=== PATIENT | male | born 2000 | race Two or more races ===

== ENCOUNTER 2021-04-22 06:24 | Emergency (ER) | payer MEDICAID, SELFPAY ==
--- NOTE | ~2021-04-22 | XR_ITS ---
EXAMINATION: XR HAND, RIGHT CLINICAL INFORMATION: Pain COMPARISON: 02/15/2018 TECHNIQUE: PA, lateral, and oblique views of the right hand. Patient was unable to straighten her fingers for imaging FINDINGS: There is a comminuted intra-articular fracture of the fourth metacarpal with minimal impaction but no significant angulation. There is associated soft tissue swelling. No other acute bony abnormality identified. No radiopaque foreign body. XR/XR hand RT min 3V IMPRESSION: Comminuted intra-articular fracture of the distal aspect of the fourth metacarpal extending to the fourth MCP joint
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
[2021-04-22 06:51] VITALS: BP 106/78; PULSE 69; RESP 16; TEMP 36.9; O2SAT 99; BMI 18.6
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
== END 2021-04-22 07:49 | disposition home or self-care (01) ==
PROVIDERS: Emergency Provider Emergency Medicine
DX: S62.304A Unspecified fracture of fourth metacarpal bone, right hand, initial encounter for closed fracture (principal); M79.641 Pain in right hand; X58.XXXA Exposure to other specified factors, initial encounter; Y93.9 Activity, unspecified; Y92.9 Unspecified place or not applicable; Y99.9 Unspecified external cause status; Z79.899 Other long term (current) drug therapy
CPT/HCPCS: 29125; 73130; 99283; 99284

== ENCOUNTER → 2021-04-25 12:40 | Outpatient (BNVA) | payer MEDICAID, SELFPAY | PROVIDERS: Visit Provider Physician Assistant | DX: S62.304A Unspecified fracture of fourth metacarpal bone, right hand, initial encounter for closed fracture (principal) | CPT/HCPCS: 99202 ==

== ENCOUNTER 2021-04-28 09:31 | Day surgery (SDC) | payer MEDICAID, SELFPAY ==
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
[2021-04-28] VITALS (7 sets, daily range): BP systolic 105–134; BP diastolic 56–94; PULSE 60–89; RESP 16; TEMP 36.1–36.6; O2SAT 97–100; BMI 17.9
--- NOTE | ~2021-04-28 | FL_ITS ---
EXAMINATION: XR FLUOROSCOPY WITH IMAGES CLINICAL INFORMATION: Fracture fourth metacarpal. COMPARISON: None. TECHNIQUE: Fluoroscopy performed by Dr. Angeles Evans. Fluoroscopy time: 82.65 seconds DAP: 45 358 mGycm2 Images: 9 FINDINGS: There is a distal fourth metacarpal fracture stabilized in the OR metallic pin in satisfactory fracture alignment. The MCP joint space is maintained and normal. FL/FL guidance in OR IMPRESSION: Satisfactory alignment of distal fourth metacarpal status post ORIF.
--- NOTE | 2021-04-28 09:59 | W.PM.OPN ---
Operative Note Operative Note Date of Service: 04/28/21 Narrative: Operative Note Narrative: Preop diagnosis: 1. Left 4th Metacarpal head and neck fracture Postop diagnosis: Same Procedure: 1. Left 4th Metacarpal fracture closed reduction percutaneous pinning 2. Ulnar nerve block Surgeon: Cristina Reynoso MD Anesthesia: General Findings: Metacarpal fracture Implants: 0.062 K-wires times 1, 0.045 K-wire x1 Tourniquet time: None EBL: Minimal Specimen: None Drains: None Complications: None Disposition: Brought to the recovery room in stable condition Plan: Follow-up in 10-14 days for a wound check, postop radiographs and for placement in a short-arm cast or splint Anticipate K-wire removal in 4 weeks based on interval bony healing Educate the patient that full fracture healing anticipated in approximately 8-12 weeks. Indications: The patient is 21 years old with left 4th metacarpal head and neck fractures . The risks and benefits of operative treatment, including but not limited to risk of damage to blood vessels, nerves, tendons, infection, recurrence, delayed or nonunion of fracture, persistent pain or numbness, incomplete resolution of preoperative symptoms, or need for further surgery were discussed with the patient and they wished to proceed with surgery. Procedure: Once consent was obtained patient was brought back to the operating suite and placed in the operating table in a supine position. . Perioperative antibiotics and general anesthesia was administered by the anesthesia team. A tourniquet was applied to the proximal aspect of the left upper extremity and the limb was prepped and draped in a standard surgical fashion. Tourniquet was not inflated during the case. The FluoroScan was used during the case to assist with our fracture reduction and placement of all implants. A closed reduction was performed on the patient's left 4th metacarpal head fracture. The fracture was already getting sticky, but I was able to improve the position of the articular surface. I then placed a single 0.062 K-wire retrograde through the head of the 4th metacarpal extending proximally across the fracture site to the shaft of the metacarpal. A 0.045 K-wire was placed transversely through the neck of the 5th metacarpal extending into the head of the 4th metacarpal, crossing 1 of the longitudinal fracture planes. Fracture alignment was assessed for both angular and rotational malalignment. Once satisfied with our fracture reduction and implant placement, the K-wires were bent and cut short and pin caps applied. Final fluoroscopic images were then obtained. The wounds were copiously irrigated with normal saline. An ulnar nerve block was then performed by infiltrating about the ulnar nerve at the wrist with some 1% lidocaine with epinephrine for postop pain control. A Sterile dressing and short volar splint was applied. The patient appears to have tolerated the procedure well and with no complications. All digits were well vascularized at the conclusion of the case.
[2021-04-28] MEDS: Lactated Ringers 1,000 ML 100 ML IVCONT (10:04)
--- NOTE | 2021-04-28 11:32 | MHC.SHP ---
Pre-Procedural Eval Section A Date of Service: 04/28/21 The patient is an INPATIENT: No Changes since office visit: No Cold of Flu in the past 2 weeks, No New Medical Problems, No Changes in Medication and No Patient answered all questions The History & Physical has been completed within 30 days and I have reviewed it.: Yes Section B Chief Complaint: fx metacarcal bone Allergies: Allergies Allergy/AdvReac Type Severity Reaction Status Date / Time No Known Allergies Allergy Verified 04/25/21 12:48 Plan I have reviewed the history and physical and performed a pertinent physical examination on my patient. No changes have occurred unless specified.
== END 2021-04-28 14:02 ==
LOC: HO.SSS 09:32
PROVIDERS: Visit Provider Orthopaedic Surgery
PROC: (CPT 26615; principal; 2021-04-28 10:50)
DX: S62.334A Displaced fracture of neck of fourth metacarpal bone, right hand, initial encounter for closed fracture (principal); Y04.2XXA Assault by strike against or bumped into by another person, initial encounter; Y93.9 Activity, unspecified; Y92.524 Gas station as the place of occurrence of the external cause; Y99.9 Unspecified external cause status
CPT/HCPCS: 26615; J0690; J1170; J2405

== ENCOUNTER 2021-05-10 12:32 | Outpatient (REF) | payer OTHER, SELFPAY ==
--- NOTE | ~2021-05-10 | XR_ITS ---
EXAMINATION: XR HAND, RIGHT CLINICAL INFORMATION: Pain right hand. COMPARISON: Fluoroscopy guidance 04/28/2021. TECHNIQUE: Three views of the right hand. FINDINGS: The distal fourth metacarpal comminuted fracture has been stabilized with 2 pins traversing 90 degrees each other. There is minimal callus formation seen at the fracture site.. No major change from the previous exam 04/28/2021. XR/XR hand RT min 3V IMPRESSION: Status post ORIF distal fourth metatarsal fracture in alignment. Minimal callus formation seen.
== END 2021-05-10 12:33 | disposition home or self-care (01) ==
LOC: HO.HOSX 12:32
PROVIDERS: Visit Provider Orthopaedic Surgery
DX: S62.335D Displaced fracture of neck of fourth metacarpal bone, left hand, subsequent encounter for fracture with routine healing (principal)
CPT/HCPCS: 29075; 73130; 99212

== ENCOUNTER 2021-05-24 10:36 | Outpatient (REF) | payer OTHER, SELFPAY ==
--- NOTE | ~2021-05-24 | XR_ITS ---
EXAMINATION: XR HAND, RIGHT CLINICAL INFORMATION: Right hand pain. COMPARISON: 05/10/2021 TECHNIQUE: PA, lateral, and oblique views of the right hand. FINDINGS: Again seen is a fracture involving the distal one third of the 4th metacarpal. A pin is present extending through the metacarpal head into the diaphysis. A transverse screw is present through the 4th metacarpal head. Compared to the prior study, there has been some interval mild periosteal reaction indicative of healing as well as some development of indistinctness of the fracture lines, indicative of osteolysis associated with healing. XR/XR hand RT min 3V IMPRESSION: Healing right 4th metacarpal study with fixation pins in place.
== END 2021-05-24 10:37 | disposition home or self-care (01) ==
LOC: HO.HOSX 10:36
PROVIDERS: Visit Provider Orthopaedic Surgery
DX: S62.308D Unspecified fracture of other metacarpal bone, subsequent encounter for fracture with routine healing (principal)
CPT/HCPCS: 73130; 99212

== ENCOUNTER 2021-06-21 08:53 | Outpatient (REF) | payer MEDICAID, SELFPAY | END 2021-06-21 08:54 | disposition home or self-care (01) | LOC: HO.HOSX 08:53 | PROVIDERS: Visit Provider Orthopaedic Surgery | DX: Z13.89 Encounter for screening for other disorder (principal) ==